=== PATIENT | male | born 1995 | race Hispanic/Latino ===

== ENCOUNTER → 2023-08-22 | Outpatient (CLI) | payer OTHER | LOC: M RAD 12:24 | PROVIDERS: ATTEND Surgery | DX: K82.8 Other specified diseases of gallbladder (principal) | CPT/HCPCS: 78227; A9537 ==

== ENCOUNTER → 2023-09-19 | Outpatient (CLI) | payer OTHER ==
[2023-09-19 17:08] LABS: PLATELET COUNT, AUTOMATED 229 10^3/uL (150-450)
[2023-09-19 17:19] LABS: INR 1.11; PROTHROMBIN TIME 13.9 SECONDS (12.5-14.5)
[2023-09-19 17:21] LABS: PARTIAL THROMBOPLASTIN TIME 33.3 SECONDS (24.8-34.2)
[2023-09-19 17:28] LABS: COLLAGEN EPINEPHRINE 152 SECONDS (74-162)
== END ==
LOC: M LAB 16:21
PROVIDERS: ATTEND Student in an Organized Health Care Education/Training Program
DX: Z01.818 Encounter for other preprocedural examination (principal)